=== PATIENT | female | born 1980 | race Caucasian/White ===

== ENCOUNTER 2019-04-16 07:13 | Outpatient (CLI) | payer OTHER, SELFPAY ==
--- NOTE | 2019-04-16 09:42 | DI.RAD_ITS ---
EXAM: XR SACRUM COCCYX INDICATION: COCCYDYNIA, M53.3. COMPARISON: No exams were available for comparison TECHNIQUE: 2D digital imaging was performed. FINDINGS: There is no evidence of fracture. The SI joints and pubic symphysis are unremarkable. IMPRESSION: Negative sacrum and coccyx.
== END 2019-04-16 07:33 ==
PROVIDERS: PCP Nurse Practitioner Family; Visit Provider Nurse Practitioner Family
DX: M53.3 Sacrococcygeal disorders, not elsewhere classified (principal)
CPT/HCPCS: 72220

== ENCOUNTER 2021-09-14 11:36 | Outpatient (REF) | payer OTHER, SELFPAY ==
--- NOTE | 2021-09-14 10:15 | PAPFT_PTH ---
PATIENT: Natalie Villarreal LOC: [facility] U#:[id number] AGE/SX: 41/F ROOM: RE09/14/[address]: Mackenzie Flower : 1980 BED: DIS: 09/14/2021 SPEC #: [id number] RECD: 09/14/21 17:52 STATUS: ELISABETH REQ #: [id number] KOBY: 09/14/21 10:[address]: Mackenzie Flower DEPT: [facility] Cytology RECD BY: Kristan Sandoval ENTERED: 09/14/21 17:52 SP TYPE: PAPFT OTHR DR: Dejah De Leon Tissues: 1 - CX/ENDOCX FOR PAP SMEARS Procedures: PAP THIN PREP/UVM Screening HPV DNA PROBE Comments: [id number] (HPV 16 & 18/45)
--- OUTSIDE RECORDS SUMMARY | 2021-09-14 11:41 | XMS_ITS | Clinical Summary ---
:1980 Author Organization [place] [address] Care Team Providers Name Role Phone Mackenzie Flower APRN Primary Care Provider [phone] Allergies Active Allergy Reactions Severity Noted Date Comments Ampicillin Hives 08/08/2016 Medications Medication Sig Dispensed Refills Start Date End Date Status vitamin with Take by mouth. 0 Active yvgjtmgw-[id number]-FA Tablet triamcinolone (KENALOG) Apply to areas 80 g 1 08/10/2019 Active 0.1 % Ointment of rash twice daily for 14 days, then take one week off and repeat. Don't apply to groin or face Active Problems No known active problems Social History Tobacco Use Types Packs/Day Years Used Date Former Smoker Smokeless Tobacco: Never Used Alcohol Use Standard Drinks/Week Comments No 0 (1 standard drink = 0.6 oz pure alcoho l) Sex Assigned at Date Recorded Not on file Last Filed Vital Signs Vital Sign Reading Time Taken Comments Blood Pressure 102/66 08/08/2016 9:08 AM EDT Pulse - - Temperature - - Respiratory Rate - - Oxygen Saturation - - Inhaled Oxygen Concentration - - Weight 53.7 kg (118 lb 6.4 oz) 08/08/2016 9:08 AM EDT Height - - Body Mass Index - - Plan of Treatment Health Maintenance Due Date Last Done Comments Covid-19 Vaccine (#1) 1986 HIV screen 08/28/1999 Hepatitis C Screening 08/28/1999 Tdap adult 2000 Tetanus vaccine 2000 HPV test 08/28/2011 PAP Smear 08/28/2011 Breast Cancer Share Decision Needed 2021 Influenza (Flu) vaccine (1 of 1 - Influenza standard 11/04/2021 series) Insurance Payer Benefit Plan / Subscriber ID Effective Dates Phone Addre ss Type Group HEALTH PLANS HEALTH PLANS [id number] 2019-[place] [phone] [address] [email or web address] [address] [place] [address] Care Teams Worm Raiser Relationship Specialty Start Date End Date Mackenzie Flower APRN PCP - General Family Medicine 08/06/19 [address] [place], [place] [id number]
--- OUTSIDE RECORDS SUMMARY | 2021-09-14 11:41 | XMS_ITS | Encounter Summary ---
:1980 Author Organization [facility] Address [place] [id number] Care Team Providers Name Role Phone Betsy Stiles MD Primary Care Provider Reason for Visit Reason Comments Ultrasound Consultation (Routine) - Closed Specialty Diagnoses / Procedures Referred By Contact Refer red To Contact Obstetrics and Diagnoses MATERNAL AGE Misti Mahajan G, CNM [facility] Study Abroad Coordinator 5l Gynecology Procedures [facility] [address] [address] Phone: Fax: Referral ID Status Reason Start Date Expiration Date Visits Requ ested Visits Authorized [id number] Closed 07/22/2016 07/22/2017 2 2 Encounter Details Date Type Department Care Team Description 08/08/2016 Procedure visit Obstetrics and Gertrudis Leyva, Materna l age 36+, Gynecology at [facility] MD hortagraviwilman, [facility] ADRIEL Small OBSTETRICS & [id number] GYNECOLOGY [phone] [place], [place] [address] Social History Tobacco Use Types Packs/Day Years Used Date Former Smoker Smokeless Tobacco: Never Used Alcohol Use Standard Drinks/Week Comments No 0 (1 standard drink = 0.6 oz pure alcoho l) Sex Assigned at Date Recorded Not on file documented as of this encounter Last Filed Vital Signs Vital Sign Reading Time Taken Comments Blood Pressure 102/66 08/08/2016 9:08 AM EDT Pulse - - Temperature - - Respiratory Rate - - Oxygen Saturation - - Inhaled Oxygen Concentration - - Weight 53.7 kg (118 lb 6.4 oz) 08/08/2016 9:08 AM EDT Height - - Body Mass Index - - documented in this encounter Progress Notes Gertrudis Leyva MD - 08/08/2016 10:45 AM EDT Maternal Medicine Consult Note Natalie Villarreal is a 35 y.o. with an ALLI of 01/06/17 who is at 18w3d gestation. She is seenin consultation at the request of Misti Mahajan CNM for evaluation of advanced maternal age. She was seen today for maternal- medicine consultation, ultrasound evaluation and genetic counseling withKarely Walter MS. Her Past Medical and Surgical history is remarkable for: 2 term vaginal births A family history was obtained. There is no history of structural abnormalities, inheritable disease, learning disability, intellectual disability, epilepsy, or repetitive loss. The ethnic backgrounds do not suggest a significantly increased genetic risk. Current Outpatient Prescriptions Medication Sig Dispense Refill ??? vitamin with pdppaqjo-Pj-Krja-FA Tablet Take by mouth. No current facility-administered medications for this visit. Allergies Allergen Reactions ??? Ampicillin Hives Record Review No additional issues Review of Systems Constitutional: fatigued but generally well Contractions: none Leaking: none Bleeding: none Musculoskeletal sciatica Physical Exam Last Set of Vitals: BP 102/66 (BP Location (NBP): Right arm, Patient Position: Sitting, BP Cuff Sizes: Adult (25-34 cm)) Wt 53.7 kg (118 lb 6.4 oz) LMP 04/01/2016 Weight - Scale: 53.7 kg (118 lb 6.4 oz) General: alert, well appearing, in no apparent distress Abdomen: abdomen is soft without significant tenderness Psychiatric: Affect is appropriate. Uterine Size: consistent with dates Ultrasound Growth appropriate for gestational age EGA 19 2/7 weeks Amniotic fluid volume normal Placenta posterior Presentation breech Morphology No structural abnormality or marker for aneuploidy. Assessment and Recommendations: 35 y.o. at 18w3d weeks' gestation. Advanced maternal age. Today's study demonstrates no finding that would increase suspicion for aneuploidy. I explained that ultrasound is not a very robust screen for Down syndrome. I explained that ultrasound has limitations and cannot detect all structural abnormalities or syndromes. I reviewed with her the option of amniocentesis, the limitations of information provided, delay to diagnosis and risk of miscarriage. She declined amniocentesis citing risk of miscarriage. She declined cell free DNA analysis. I appreciate the opportunity to be involved in this patient's care and am available if further questions should arise. No other visits are indicated at this time. Gertrudis Leyva MD 08/08/2016 Cc: Misti Mahajan CNM documented in this encounter Plan of Treatment Not on filedocumented as of this encounter Visit Diagnoses Diagnosis Maternal age 35+, multigravida, second t rimester documented in this encounter Care Teams Executive Asst Relationship Specialty Start Date End Date Moises-Betsy Hummel MD PCP - General 01/26/10 08/05/[address] [address] documented as of this encounter
--- OUTSIDE RECORDS SUMMARY | 2021-09-14 11:41 | XMS_ITS | Encounter Summary ---
:1980 Author Organization [facility] [place] [address] Care Team Providers Name Role Phone Mackenzie Flower APRN Primary Care Provider [phone] Reason for Visit Reason Comments Rash Consultation (Routine) - Specialty Diagnoses / Procedures Referred By Contact Refer red To Contact Dermatology Diagnoses Disorder of pigmentation, unspecified Mackenzie Flower, [facility] PROFESSOR OF COUNSELING [address] [facility] [address] [place] [address] [place] [address] Referral ID Status Reason Start Date Expiration Date Visits V isits Requested Authorized [id number] Consult, Test 08/06/2019 08/05/2020 [facility] PCP Updated and/or Approved Encounter Details Date Type Department Care Team Description 08/10/2019 Office Visit Dermatology at [facility] Rayray Aragon MD Polymorphous [address] [facility] [address] [place] [address] [facility] [phone] RD-DERMATOLOGY [place], [place] [address] Social History Tobacco Use Types Packs/Day Years Used Date Former Smoker Smokeless Tobacco: Never Used Alcohol Use Standard Drinks/Week Comments No 0 (1 standard drink = 0.6 oz pure alcoho l) Sex Assigned at Date Recorded Not on file documented as of this encounter Patient Instructions Patient InstructionsYanely Hernandez CCMA - 08/10/2019 11:40 AM EDT Sensitive Skin Care For Your Hands - Please place thin layer of Rx: Triamcinolone ointment to the hands twice daily for 14 days then take one week off and continue with 14 more days followed by another week off. We do not want you usingthe steroid terminal make up operator as prolonged topical corticosteroid can cause including weakening and thinningof the skin resulting in discoloration and stretch chavez. Please avoid face, groin , or other thin-skinned highly penetrable areas (eg, the underarms) - Please place cotton gloves on over a thin layer of the steroid ointment as described above 2-3 times a week at night, retire to bed with the gloves in place and in the morning, remove gloves and rinse off hands. Cotton gloves are very helpful for keeping medicated ointment on hands during the night and also increase the penetration and effectiveness of the steroid. Below is a link to [employer] to buy a pair, although any pharmacy should carry some - Please know that constant hand washing with a harsh soap will worsen the disease and leave hands dry, cracked and peeling. Ways to minimize this is either by wearing waterproof gloves are use alcoholbased hand cloth hand such as Purell. If you do wash your hands, please pat dry and immediately applyan moisturizer, Vaseline is preferable. - Please discontinue ALL current personal care products that are being applied to the hands apart from either Vaseline, CeraVe cream, CeraVe lotion, CeraVe lite lotion, Vanicream cream. [email or web address]-Hkpnad-Xufjuo-Gloves-Medium/[email or web address] =1 documented in this encounter Progress Notes Rayray Aragon - 08/10/2019 11:40 AM EDT Images from the original note were not included. DERMATOLOGY - NEW PATIENT NOTE Date of service: 08/10/2019 Natalievalery Villarreal : 1980, 38 y.o. Chief Complaint: Chief Complaint Patient presents with ??? Rash HPI: Natalie Villarreal is a 38 y.o. female referred by Mackenzie Flower with the following concerns: patient has a history of a rash that started during her most recent in 2017. She states it started on her hands and it was very itchy. Sun appears to be directly inciting, starts in the spring and lasts throughout the summer, better in the winter. She has tried Hydrocortisone and other OTC products. She is 7-8 out of 10 itchy when she is in the sun. She applies Neutorgena 70spf sunscreen daily. No other rash on the face or legs, feet. No lesions in the mouth or genitals. Relevant Skin History: - Okay to leave detailed message with results? yes - Skin cancer (including type): no Family History: Melanoma: n/a Relevant Social History: - n/a Meds: Current Outpatient Medications Medication Sig Dispense Refill ??? vitamin with uzoezqve-Jf-Mhyk-FA Tablet Take by mouth. No current facility-administered medications for this visit. Allergies: Allergies Allergen Reactions ??? Ampicillin Hives Review of Systems: - General: Feels well, denies any recent illnesses, fevers, changes in weight, chills, or night sweats - Skin: No other skin concerns. Examination: - Constitutional: Patient was alert, well-appearing and in no noticeable distress. - Focused Exam: Skin examination of the face, hands, left and right upper extremities was normal with the exception of the findings listed below - A nurse/MA was present and on standby during my examination. 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 pink flat topped papules on the bilateral dorsal hands. - Start Rx: Triamcinolone ointment apply topically BID to the areas of rash x 14 days, take one weekoff and repeat. Can apply under cotton gloves at night - strict sun protection, physical ralf suncreens - discussed biopsy, although today is good day, minimal inflammation and unclear if it would exchange engineer. Instructed her that if rash worsens despite above measures can return for follow soon than scheduled. RTC: 3 months The following photos were obtained with patient consent: Note initiated by VIDYA Wilkes. I, VIDYA Wilkes, have performed the documentation for this encounter in the presence of andacting as a scribe for Rayray Aragon MD. I performed the services which were documented by the scribe, and I agree with the accuracy of the documentation in this encounter. Rayray Aragon MD Reviewed and signed by Rayray Aragon MD Resident in Dermatology [facility] staff knurling machine tender: Gertrudis Vazquez MD Section of Dermatology [facility] Gertrudis Vazquez MD - 08/10/2019 11:40 AM EDT I was the supervising physician working with dermatology resident Dr. Aragon in the dermatology clinicduring this patient visit. The level of Resident supervision for this patient visit was indirect supervision with direct supervision immediately available. (definition: [facility] Policy Statement on Graduate Medical Education, Supervision of Graduate Medical Trainees) I was immediately available to for questions and discussion regarding this visit. I have reviewed his encounter note details and level of service. 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
--- OUTSIDE RECORDS SUMMARY | 2021-09-14 11:41 | XMS_ITS | Encounter Summary ---
:1980 Author Organization [place] [address] Care Team Providers Name Role Phone Betsy Stiles MD Primary Care Provider Encounter Details Date Type Department Care Team Description 08/03/2016 Orders Only Obstetrics and Gertrudis Leyva MD Maternal age > 35, Gynecology at [facility] multigravida, [facility] DR unspecified trimester [address] [place] & [place] [address] GYNECOLOGY [phone] [place] [id number] Social History Tobacco Use Types Packs/Day Years Used Date Never Assessed Sex Assigned at Date Recorded Not on file documented as of this encounter Plan of Treatment Not on filedocumented as of this encounter Results US OB Detailed Morphology (08/08/2016 10:59 AM EDT) Anatomical Region Laterality Modality Pelvis, Abdomen Ultrasound Specimen (Source) Anatomical Collection Method Collection Time Re ceived Time Location / / Volume Laterality 08/08/2016 9:19 AM EDT Impressions 08/08/2016 11:39 AM EDT 2nd Trimester - Detailed Morphology - S ummary Single intrauterine with a ge stational age of 18w 3d based on LMP ??(04/01/16) Composite age based on the current ultr asound alone is 19w 2d. Current growth parameters are consisten t with prior dating indicating normal growth. Amniotic fluid volume is Appropriate fo r gestational age. Detailed anatomic evaluation was performed and no structural abnormalities are noted. ??I ??viewed the images and agree with the above interpretation. ? Gertrudis flynn MD Electronically Signed Corrected Final Re port ??08/08/2016 06:33 pm Narrative 08/08/2016 11:39 AM EDT OBSTETRICS REPORT ? (Corrected Final 08/08/2016 06:33 ?pm) PATIENT INFO: ID #: ? [id number] ?: ??[birth year] (35 yrs) Name: ? NATALIE VILLARREAL ?Visit Date: 08/08/2016 09:19 am PERFORMED BY: Performed By: ? Noman RDMS, ??Estela barksdale Attending: ?Autumn FAN, Gertrudis Galloway Resident: ? Nicolasa FAN, Oliverio Garcias Referred By: ?JOSE DHILLON CNM Location: ? [place] SERVICE(S) PROVIDED: ??[facility] - Detailed Morphology - [id number] ? [id number] INDICATIONS: ??18 weeks gestation of ?Z3A.18 ??maternal age OB HISTORY: Blood ?Height: ?Weight (lb): 118 ? BMI: Type: EVALUATION: Num Of Fetuses: ? 1 Heart ? 157 Rate(bpm): Cardiac Activity: ?? Observed, normal r hythm Presentation: ? Breech Placenta: ? Anterior P. Cord Insertion: ??Within Normal Limi ts Amniotic Fluid GEORGINA FV: ?Appropriate for gestati onal age --------- BIOMETRY: --------- BPD: ?44.8 ??mm ? G.Age: ?? 19w 4d OFD: ?57.3 ??mm HC: ?167.3 ??mm ? G.Age: ?? 19w 3d AC: ?136.4 ??mm ? G.Age: ?? 19w 0d FL: ? 29.1 ??mm ? G.Age: ?? 19w 0d HUM: ?27.8 ??mm ? G.Age: ?? 18w 6d CER: ?19.9 ??mm ? G.Age: ?? 19w 0d NFT: ? 2.3 ??mm NB: ? 4.91 ??mm LV: ?6.4 ??mm CM: ?5.9 ??mm CI: ?78.2 ??% ? 70 - 86 FL/HC: ? 17.4 ??% ? 15.8 - 18 HC/AC: ? 1.23 ?1.07 - 1.29 FL/BPD: ?65.0 ??% FL/AC: ? 21.3 ??% ? 20 - 24 Est. FW: ? 273 ?? gm ?? 0 lb 10 oz GESTATIONAL AGE: LMP: ? 18w 3d ?Date : ??04/01/16 ? ALLI: ?? 01/06/17 U/S Today: ? 19w 2d ?ALLI: ?? 12/31/16 Best: ?18w 3d ?? Det. By: ??LMP ??(04/01/16) ?ALLI: ?? 01/06/17 TARGETED ANATOMY: Central Nervous System Calvarium/Cranial V.: ??Within Normal L imits Intracranial Lisa: ? Within Normal Limits Cavum: ? Within N ormal Limits Parenchyma: ?Within Nor mal Limits Lateral Ventricles: ?Within Normal Limits Choroid Plexus: ?Within Richelle l Limits Cereb./Vermis: ? Within Richelle l Limits Cisterna Magna: ?Within Richelle l Limits Corpus Callosum: ? Within Normal Limits Midline Falx: ?Within Norm al Limits Spine Cervical: ?Visualize d Thoracic: ?Visualize d Lumbar: ?Visualiz ed Sacral: ?Visualiz ed Shape/Curvature: ? Visualized Head/Neck Face: ?Within Normal Limits Lips: ?Within Normal Limits Ear Position/Size: ? Visualized Neck: ?Within Normal Limits Nuchal Fold: ? Within Norm al Limits Nasal Bone: ?Present Profile: ? Visualize d Orbits/Eyes: ? Visualized Mandible: ?Visualize d Maxilla: ? Visualize d Thorax Thoracic Contour: ?Within Normal Limits Lungs: ? Visualiz ed 4 Chamber View: ?Within Richelle l Limits Cardiac Motion: ?Normal Rhyth m Rt Outflow Tract: ?Visualized Lt Outflow Tract: ?Visualized Aortic Arch: ? Visualized Ductal Arch: ? Visualized SVC: ? Visuali zed Cardiac [place]: ?Visualized Diaphragm: ? Visualized 3 Vessel View: ? Visualized IVC: ? Visuali zed Abdomen Ventral Wall: ?Visualized Cord Insertion: ?Visualized Situs: ? Normal Stomach: ? Visualize d Liver: ? Visualiz ed Lt Kidney: ? Visualized Rt Kidney: ? Visualized Bladder: ? Visualize d Bowel: ? Visualiz ed Extremities Lt Humerus: ?Within Nom al Limits Rt Humerus: ?Within Nor mal Limits Lt Forearm: ?Within Nor mal Limits Rt Forearm: ?Within Nor mal Limits Lt Hand: ? Within No rmal Limits Rt Hand: ? Within No rmal Limits Lt Femur: ?Within No rmal Limits Rt Femur: ?Within No rmal Limits Lt Lower Leg: ?Within Norm al Limits Rt Lower Leg: ?Within Norm al Limits Lt Foot: ? Visualize d Rt Foot: ? Visualize d Other Umbilical Cord: ?3 vessel cor d CERVIX UTERUS ADNEXA: Left Ovary Size(cm) ? 2.31 ?? x ?? 1.84 ?? x ? ?1.75 ?Vol(ml): 3.9 Visualized Right Ovary Size(cm) ? 1.9 ??x ?? 1.75 ?? x ??0.78 ?Vol(ml): 1.4 Visualized Procedure Note Gertrudis Leyva MD - 08/08/2016Formattin g of this note might be different from the original. OBSTETRICS REPORT (Corrected Final 07/2016 06:33 pm) PATIENT INFO: ID #: [id number] : [birth year] (35 y rs) Name: NATALIE VILLARREAL Visit Date: 07/2016 09:19 am PERFORMED BY: Performed By: Vira Tineo RDMS Attending: Gertrudis Leyva MD Resident: Cristy Baldwin MD Referred By: JOSE DHILLON [facility] Location: [place] SERVICE(S) PROVIDED: [facility] - Detailed Morphology - [id number] INDICATIONS: 18 weeks gestation of Z3A.18 maternal age OB HISTORY: Blood Height: Weight (lb): 118 BMI: Type: EVALUATION: Num Of Fetuses: 1 Heart 157 Rate(bpm): Cardiac Activity: Observed, normal rhyt hm Presentation: Breech Placenta: Anterior P. Cord Insertion: Within Normal Limits Amniotic Fluid GEORGINA FV: Appropriate for gestational age --------- BIOMETRY: --------- BPD: 44.8 mm G.Age: 19w 4d OFD: 57.3 mm HC: 167.3 mm G.Age: 19w 3d AC: 136.4 mm G.Age: 19w 0d FL: 29.1 mm G.Age: 19w 0d HUM: 27.8 mm G.Age: 18w 6d CER: 19.9 mm G.Age: 19w 0d NFT: 2.3 mm NB: 4.91 mm LV: 6.4 mm CM: 5.9 mm CI: 78.2 % 70 - 86 FL/HC: 17.4 % 15.8 - 18 HC/AC: 1.23 1.07 - 1.29 FL/BPD: 65.0 % FL/AC: 21.3 % 20 - 24 Est. FW: 273 gm 0 lb 10 oz GESTATIONAL AGE: LMP: 18w 3d Date: 04/01/16 ALLI: 7 U/S Today: 19w 2d ALLI: 12/31/16 Best: 18w 3d Det. By: LMP (04/01/16) ED TARGETED ANATOMY: Central Nervous System Calvarium/Cranial V.: Within Normal [place] its Intracranial Lisa: Within Normal Limits Cavum: Within Normal Limits Parenchyma: Within Normal Limits Lateral Ventricles: Within Normal Limit s Choroid Plexus: Within Normal Limits Cereb./Vermis: Within Normal Limits Cisterna Magna: Within Normal Limits Corpus Callosum: Within Normal Limits Midline Falx: Within Normal Limits Spine Cervical: Visualized Thoracic: Visualized Lumbar: Visualized Sacral: Visualized Shape/Curvature: Visualized Head/Neck Face: Within Normal Limits Lips: Within Normal Limits Ear Position/Size: Visualized Neck: Within Normal Limits Nuchal Fold: Within Normal Limits Nasal Bone: Present Profile: Visualized Orbits/Eyes: Visualized Mandible: Visualized Maxilla: Visualized Thorax Thoracic Contour: Within Normal Limits Lungs: Visualized 4 Chamber View: Within Normal Limits Cardiac Motion: Normal Rhythm Rt Outflow Tract: Visualized Lt Outflow Tract: Visualized Aortic Arch: Visualized Ductal Arch: Visualized SVC: Visualized Cardiac [place]: Visualized Diaphragm: Visualized 3 Vessel View: Visualized IVC: Visualized Abdomen Ventral Wall: Visualized Cord Insertion: Visualized Situs: Normal Stomach: Visualized Liver: Visualized Lt Kidney: Visualized Rt Kidney: Visualized Bladder: Visualized Bowel: Visualized Extremities Lt Humerus: Within Nomal Limits Rt Humerus: Within Normal Limits Lt Forearm: Within Normal Limits Rt Forearm: Within Normal Limits Lt Hand: Within Normal Limits Rt Hand: Within Normal Limits Lt Femur: Within Normal Limits Rt Femur: Within Normal Limits Lt Lower Leg: Within Normal Limits Rt Lower Leg: Within Normal Limits Lt Foot: Visualized Rt Foot: Visualized Other Umbilical Cord: 3 vessel cord CERVIX UTERUS ADNEXA: Left Ovary Size(cm) 2.31 x 1.84 x 1.75 Vol(ml): 3. 9 Visualized Right Ovary Size(cm) 1.9 x 1.75 x 0.78 Vol(ml): 1.4 Visualized IMPRESSION 2nd Trimester - Detailed Morphology - S ummary Single intrauterine with a ge stational age of 18w 3d based on LMP (04/01/16) Composite age based on the current ultr asound alone is 19w 2d. Current growth parameters are consisten t with prior dating indicating normal growth. Amniotic fluid volume is Appropriate fo r gestational age. Detailed anatomic evaluation was performed and no structural abnormalities are noted. I viewed the images and agree with the above interpretation. Gertrudis Leyva MD Electronically Signed Corrected Final Re port 08/08/2016 06:33 pm Gertrudis Leyva MD IMG US OB ORDERABLES documented in this encounter Visit Diagnoses Diagnosis Maternal age > 35, multigravida, unspeci fied trimester Maternal age > 35, multigravida, unspeci fied trimester documented in this encounter Care Teams Aws Solution Architect Relationship Specialty Start Date End Date Moises-Betsy Hummel MD PCP - General 01/26/10 08/05/[address] [address] documented as of this encounter
--- OUTSIDE RECORDS SUMMARY | 2021-09-14 11:41 | XMS_ITS | Encounter Summary ---
:1980 Author Organization [facility] Address [place] [id number] Care Team Providers Name Role Phone Betsy Stiles MD Primary Care Provider Reason for Visit Reason Comments Advanced Maternal Age Consultation (Routine) - Closed Specialty Diagnoses / Procedures Referred By Contact Refer red To Contact Obstetrics and Diagnoses MATERNAL AGE Misti Mahajan, CNM [facility] Airplane Rigger 5l Gynecology Procedures [facility] [address] [place], [place] [address] [place] [phone] Phone: Fax: Referral ID Status Reason Start Date Expiration Date Visits Requ ested Visits Authorized [id number] Closed 07/22/2016 07/22/2017 2 2 Encounter Details Date Type Department Care Team Description 08/08/2016 Office Visit Obstetrics and Karely Jackson Maternal age 36+, Gynecology at [facility] multigravida, second [facility] DR Forbes MA OBSTETRICS & [address] GYNECOLOGY [phone] [place], [place] [address] Social History Tobacco Use Types Packs/Day Years Used Date Former Smoker Smokeless Tobacco: Never Used Alcohol Use Standard Drinks/Week Comments No 0 (1 standard drink = 0.6 oz pure alcoho l) Sex Assigned at Date Recorded Not on file documented as of this encounter Progress Notes Karely Jackson LGC - 08/08/2016 9:30 AM EDT Genetic Counseling Note Natalie Villarreal is a 35 y.o. female currently at 18w3d gestation. She was referred to the Diagnosis Program by Misti Mahajan CNM. I met with Natalie for a 20 minute genetic counseling visit. She was accompanied to the visit by her family. Dr. Cristy Baldwin observed. Chief Complaint Patient presents with ??? Advanced Maternal Age, 36 at ALLI A three generation pedigree was obtained and will be scanned into Natalie's electronic medical record. The reported family history was otherwise unremarkable for intellectual disability, congenital anomalies, recurrent loss, or known genetic conditions that could have implications for this . Natalie and her , Ander Villarreal, are , not specified. Consanguinity was denied. Obstetric History T2 L2 SAB0 TAB0 Ectopic0 Multiple0 Live Births2 # Outcome Date GA Lbr Ki/2nd Weight Sex Delivery Anes PTL Lv 3 Current 2 Term 01/23/08 39w0d 3.204 kg (7 lb 1 oz) F Vag-Spont [place] 1 Term 05/14/03 41w0d 2.977 kg (6 lb 9 oz) F Vag-Spont BARRERA Patient's last menstrual period was 04/01/2016. Estimated Date of Delivery: 01/06/17 based on LMP and confirmed by ultrasound (06/10/16 = 10.4 weeks) Screening Results Test Result ??? Aneuploidy screen Declined per record ??? Cystic fibrosis carrier screen Declined per record ??? Thalassemia screen MCV within normal limits (82.6 fL) Assessment Maternal age, 36 at ALLI: We reviewed the association of maternal age with chromosome aneuploidy. We discussed the benefits, limitations, and risks of diagnostic testing for aneuploidies with amniocentesis, as well as screening with ultrasound and cell-free DNA screening ([place]). Plan: Natalie declined the [place] test and amniocentesis. Following our visit, Natalie had a morphology ultrasound and maternal- medicine consultation with Dr. Gertrudis Leyva. Please refer to her note for further details and recommendations. 20 minutes of this encounter were spent in ugur-sm-zgvy discussion of testing options and reviewing the family history. documented in this encounter Plan of Treatment Not on filedocumented as of this encounter Visit Diagnoses Diagnosis Maternal age 35+, multigravida, second t rimester documented in this encounter Care Teams Compressor Station Engineer Relationship Specialty Start Date End Date Moises-Betsy Hummel MD PCP - General 01/26/10 08/05/19 [address] [place] [address] documented as of this encounter
--- OUTSIDE RECORDS SUMMARY | 2021-09-14 11:41 | XMS_ITS | Encounter Summary ---
:1980 Author Organization [facility] Address [address] [facility] [place] [address] Care Team Providers Name Role Phone Betsy Stiles MD Primary Care Provider Encounter Details Date Type Department Care Team Description 08/08/2016 Hospital Encounter Radiology at [facility] Gertrudis Leyva, Maternal age > 35, One [facility] MD child, Drive [facility] unspecified [place], [place] [address] [place] [address] OBSTETRICS & [phone] [place] [address] Social History Tobacco Use Types Packs/Day Years Used Date Former Smoker Smokeless Tobacco: Never Used Alcohol Use Standard Drinks/Week Comments No 0 (1 standard drink = 0.6 oz pure alcoho l) Sex Assigned at Date Recorded Not on file documented as of this encounter Medications at Time of Discharge Medication Sig Dispensed Refills Start Date End Date vitamin with Take by mouth. 0 finsmvok-Sf-Zcdm-FA Tablet documented as of this encounter Plan of Treatment Not on filedocumented as of this encounter Procedures Procedure Name Priority Date/Time Associated Diagnosis Comme nts US OB DETAILED Routine 08/08/2016 10:59 Maternal age > 35, Res ults for this MORPHOLOGY AM EDT multigravida, procedure are in unspecified the results trimester section. documented in this encounter Results US OB Detailed Morphology [...] 06:33 ?pm) PATIENT INFO: ID #: ? [id number] ?: ??[birth year] (35 yrs) Name: ? NATALIE VILLARREAL ?Visit Date: 08/08/2016 09:19 am PERFORMED BY: Performed By: ? Noman CONTRERAS, ??Estela barksdale Attending: ?Autumn FAN, Gertrudis Galloway Resident: ? Nicolasa FAN, Oliverio Garcias Referred By: ?JOSE DHILLON CNM Location: ? [place] SERVICE(S) PROVIDED: ??[facility] - Detailed Morphology - [id number] ? [id number] INDICATIONS: ??18 weeks gestation of ?Z3A.18 ??maternal [...] ? Visualized SVC: ? Visuali zed Cardiac [place]: ?Visualized Diaphragm: ? Visualized 3 Vessel View: [...] 07/2016 06:33 pm) PATIENT INFO: ID #: [id number] : [birth year] (35 y rs) Name: NATALIE VILLARREAL Visit Date: 07/2016 09:19 am PERFORMED BY: Performed By: Vira Tineo RDMS Attending: Gertrudis Leyva MD Resident: Cristy Baldwin MD Referred By: JOSE DHILLON [facility] Location: [place] SERVICE(S) PROVIDED: [facility] - Detailed Morphology - [id number] INDICATIONS: 18 weeks gestation of [...] Visualized Ductal Arch: Visualized SVC: Visualized Cardiac [place]: Visualized Diaphragm: Visualized 3 Vessel View: Visualized [...] trimester documented in this encounter Care Teams Nick Setter Relationship Specialty Start Date End Date Moises-Betsy Hummel MD PCP - General 01/26/10 08/05/[address] [address] documented as of this encounter
--- OUTSIDE RECORDS SUMMARY | 2021-09-14 11:42 | XMS_ITS | Encounter Summary ---
:[address] [facility] Address [address] [place] [address] Care Team Providers Name Role Phone Unavailable Primary Care Provider Unavailable Encounter Details Date Type Department Care Team Description 07/01/2005 Results Only [facility] - Solange Stiles MD Maple conversion 79 [facility],[place] [address] [id number] [phone] Social History Tobacco Use Types Packs/Day Years Used Date Never Assessed Sex Assigned at Date Recorded Not on file documented as of this encounter Plan of Treatment Not on filedocumented as of this encounter Procedures Procedure Name Priority Date/Time Associated Diagnosis Comme nts CYTOPATHOLOGY Routine 07/01/2005 0:00 EDT Result s for this procedure are i n the results section . documented in this encounter Results CYTOPATHOLOGY (07/01/2005 0:00 EDT) Pathology Report: CYTOPATHOLOGY REPORT [facility] Reports generated via electronic interface contain kitty ginal data; however they are lacking the format of the original re port. Caution should be taken when reading/interpreting unfo rmatted reports. Name: ? NATALIE VILLARREAL ? Accession #: ? [id number] : ? 1980 (Age: 24) ??F ?Collect Date: ? 06/05 Location: ? [facility] ? Receive Date : ? 07/05/2005 Provider: ?KRISTINA STILES MD Copy to: ? Specimen/Source: ? ThinPrep Pap Test, Cervix/Endocervix, processed on [employer] ThinPrep Imaging System, with manual evaluation Last Menstrual Period: ? 07/08 Menstrual/ Status: ? Post Other: ? HPVA - HPV testing requested if ASC-US on the current ThinPrep Pap test. ? SPECIMEN ADEQUACY ? Satisfactory for Evaluation - transformation zone component present GENERAL CATEGORIZATION ? Negative for Intraepithelial Lesion or Malignan cy ? Document reviewed and electronically signed by: ? FIORDALIZA Latif(ASCP)(IAC) ? Report Date: ??07/06/2005 17:35 End of Report Specimen Performing Organization Address City/State/ZIP Code Phon e Number [facility] [address] [place] [address] SERVICES [facility] [address] [place] [address] documented in this encounter Visit Diagnoses Not on filedocumented in this encounter
--- OUTSIDE RECORDS SUMMARY | 2021-09-14 11:42 | XMS_ITS | Encounter Summary ---
:1980 Author Organization [facility] Address [address] [place] [address] Care Team Providers Name Role Phone Unavailable Primary Care Provider Unavailable Encounter Details Date Type Department Care Team Description 05/11/2007 Hospital Encounter [facility] - Betsy Stiles MD Other 79 [facility] [id number] [place] [address] (Wo rk) Social History Tobacco Use Types Packs/Day Years Used Date Never Assessed Sex Assigned at Date Recorded Not on file documented as of this encounter Discharge Disposition Disposition Code Departure Means Destination Home or Self Care documented in this encounter Plan of Treatment Not on filedocumented as of this encounter Visit Diagnoses Not on filedocumented in this encounter
--- OUTSIDE RECORDS SUMMARY | 2021-09-14 11:42 | XMS_ITS | Clinical Summary ---
:1980 Author Organization [facility] Address [address] [place] [address] Care Team Providers Name Role Phone Betsy Stiles MD Primary Care Provider Social History Tobacco Use Types Packs/Day Years Used Date Never Assessed Sex Assigned at Date Recorded Not on file Plan of Treatment Not on file Care Teams Sizer Machine Relationship Specialty Start Date End Date Betsy Stiles MD PCP - General 10/24/14 [address] [place] [address]
--- OUTSIDE RECORDS SUMMARY | 2021-09-14 11:42 | XMS_ITS | Encounter Summary ---
:1980 Author Organization [facility] Address [address] [place] [address] Care Team Providers Name Role Phone Betsy Stiles MD Primary Care Provider Encounter Details Date Type Department Care Team Description 02/05/2021 Lab Requisition [facility] Outr Resulting Lab, Pathology & Laboratory Provider [facility] [address] [place] [address] Social History Tobacco Use Types Packs/Day Years Used Date Never Assessed Sex Assigned at Date Recorded Not on file documented as of this encounter Plan of Treatment Not on filedocumented as of this encounter Procedures Procedure Name Priority Date/Time Associated Diagnosis Comme nts COVID-19 TEST [facility] Today 02/05/2021 10:04 LAB PCR EST COVID-19 TESTING Routine 02/05/2021 10:04 Results for this EST procedure are i n the results section. documented in this encounter Results COVID-19 TEST [facility] PCR (02/05/2021 10:04 EST) Specimen Swab Performing Organization Address City/State/ZIP Code Phon e Number [facility] [address] [place] [address] SERVICES COVID-19 TESTING (02/05/2021 10:04 EST) COVID-19 rt-PCR Negative Negative [facility] Result Comment: [facility] This test has not been FDA c leared or approved. This test has been authorized by FDA under an EUA for use by authorized laboratories. This test has been authorized only for detection of nucleic acid fro SERVICES m 2019-nCoV, not for any oth er viruses or pathogens. This test is only authorized for the duration of the declaration that circumstances exist justifying the authorization of emergency use of in vitro d iagnostic tests for detectio n and/or diagnosis of 2019-nCoV under section 564(b)(1) of Act, 21 U.S.C ?? 360bbb-3(b) (1), unless the authorization is terminated or revoked sooner. Negative results do not prec lude 2019-nCoV infection and should not be used as the sole basis for treatment or other patient management decisions. Negative results must be combined with clinical observa tions, patient history, and epidemiological informatio n. Performed on the [employer] Fusion instrument Performing Lab [place] [facility] Lab [facility] SERVICES Specimen Swab Performing Organization Address City/State/ZIP Code Phon e Number [facility] [address] [place] [address] SERVICES documented in this encounter Visit Diagnoses Not on filedocumented in this encounter Care Teams [employer] Relationship Specialty Start Date End Date Moises-Betsy Hummel MD PCP - General 10/24/14 [address],[facility] 3 [place] [address] documented as of this encounter
--- OUTSIDE RECORDS SUMMARY | 2021-09-14 11:42 | XMS_ITS | Encounter Summary ---
:[address] [facility] Address [address] [place] [address] Care Team Providers Name Role Phone Betsy Stiles MD Primary Care Provider Encounter Details Date Type Department Care Team Description 05/27/2016 Results Only [facility]- Misti Cifuentes CNM [phone] [place] [address] (Wo rk) Social History Tobacco Use Types Packs/Day Years Used Date Never Assessed Sex Assigned at Date Recorded Not on file documented as of this encounter Plan of Treatment Not on filedocumented as of this encounter Procedures Procedure Name Priority Date/Time Associated Diagnosis Comme nts PAP TEST- RESULT Routine 05/27/2016 0:00 EDT Resu lts for this ONLY procedure are i n the results section. documented in this encounter Results PAP TEST- RESULT ONLY (05/27/2016 0:00 EDT) Pathology Report: CYTOPATHOLOGY REPORT [facility] Reports generated via electronic interface contain kitty ginal data; SERVICES however they are lacking the format of the original re port. Caution should be taken when reading/interpreting unfo rmatted reports. Name: ? NATALIE VILLARREAL ? Accession #: ? [id number] ? : ? 1980 (Age: 4 4) ??F ?Collect Date: ? 05/27/2016 ? Location: ? [facility] ? Receive Date: ? 05/31/19 17 ? Provider: MISTI ARENAS Copy to: BETSY STILES MD ? Final Report SPECIMEN ADEQUACY ? Satisfactory for Evaluation - transformation zone component present GENERAL CATEGORIZATION ? Negative for Intraepithelial Lesion or Malignan cy ?? Last Menstrual Period: 04/01/2016 Menstrual/ Status: ?? Specimen/Source: ??Pap Test, Cervix, ThinPrep Imaging System with manual evaluation Document reviewed and electronically signed by: ? Anderson Bañuelos, FIORDALIZA(ASCP) ? Report ??Date: 06/01/2016 14:25 HPV with Pap Test ? Date Ordered: ? 06/01/2016 ? Status: ?? Signed Out ?Date Complete: ? 06/02/2016 ? By: ??Sy stem Interface ? Date Reported: ? 06/02/2016 ? Interpretation RESULT: Negative for HPV. No E6 or E7 mRNA is detected from HPV types 16,18,31,3 3,35, 39,45,51,52,56,58,59,66, and 68 by it desktop support specialist media alondra amplification. Comments Document reviewed and electronically signed by: ? System Interface ? Report date: 06/02/2016 By the signature above, the attending physician certif ies that he/she has personally conducted a gross and/or microscopic examin ation of the described specimens and rendered or confirmed the above diagnosi s. End of Report Specimen Performing Organization Address City/State/ZIP Code Phon e Number [facility] [address] [place] [address] SERVICES documented in this encounter Visit Diagnoses Not on filedocumented in this encounter Care Teams Stereotyper Apprentice Relationship Specialty Start Date End Date Moises-Betsy Hummel MD PCP - General 10/24/14 [address] [place] [address] documented as of this encounter
--- OUTSIDE RECORDS SUMMARY | 2021-09-14 11:42 | XMS_ITS | Encounter Summary ---
:1980 Author Organization [facility] Address [address] [place] [address] Care Team Providers Name Role Phone Betsy Stiles MD Primary Care Provider Encounter Details Date Type Department Care Team Description 03/19/2021 Lab Requisition [facility] Outr Resulting Lab, Pathology & Laboratory Provider [facility] [address] [place] [address] Social History Tobacco Use Types Packs/Day Years Used Date Never Assessed Sex Assigned at Date Recorded Not on file documented as of this encounter Plan of Treatment Not on filedocumented as of this encounter Procedures Procedure Name Priority Date/Time Associated Diagnosis Comme nts COVID-19 TEST [facility] Today 03/19/2021 8:43 EST LAB PCR COVID-19 TESTING Routine 03/19/2021 8:43 EST Resu lts for this procedure are i n the results section. documented in this encounter Results COVID-19 TEST [facility] PCR (03/19/2021 8:43 EST) Specimen Swab Performing Organization Address City/State/ZIP Code Phon e Number [facility] [address] [place] [address] SERVICES COVID-19 TESTING (03/19/2021 8:43 EST) COVID-19 rt-PCR Negative Negative [facility] Result Comment: [facility] This test has not been FDA c leared or approved. This test has been authorized by FDA under an EUA for use by authorized laboratories. This test has been authorized only for detection of nucleic acid fro SERVICES m 2018-nCo, not for any oth er viruses or [...] and epidemiological informatio n. Performed on the [employer] Fusion instrument Performing Lab [place] [facility] Lab [facility] SERVICES Specimen Swab Performing Organization Address City/State/ZIP Code Phon e Number [facility] [address] [place] [address] SERVICES documented in this encounter Visit Diagnoses Not on filedocumented in this encounter Care Teams Internal Consultant Relationship Specialty Start Date End Date Moises-Betsy Hummel MD PCP - General 10/24/14 [address],[facility] 3 [place] [id number] documented as of this encounter
--- OUTSIDE RECORDS SUMMARY | 2021-09-14 11:42 | XMS_ITS | Encounter Summary ---
:1980 Author Organization [facility] Address [address] [place] [address] Care Team Providers Name Role Phone Unavailable Primary Care Provider Unavailable Encounter Details Date Type Department Care Team Description 05/02/2011 Results Only [facility] Bert Mcgarry, [facility] Laboratory Services - [address] [place], [place] [address] [facility] [address] [place] [address] [phone] Social History Tobacco Use Types Packs/Day Years Used Date Never Assessed Sex Assigned at Date Recorded Not on file documented as of this encounter Plan of Treatment Not on filedocumented as of this encounter Procedures Procedure Name Priority Date/Time Associated Diagnosis Comme nts PAP TEST- RESULT Routine 05/02/2011 0:00 EST Resu lts for this ONLY procedure are i n the results section. documented in this encounter Results PAP TEST- RESULT ONLY (05/02/2011 0:00 EST) Pathology Report: CYTOPATHOLOGY REPORT [facility] Reports generated via electronic interface contain kitty ginal data; however they are lacking the format of the original re port. Caution should be taken when reading/interpreting unfo rmatted reports. Name: ? NATALIE VILLARREAL ? Accession #: ? [id number] : ? 1980 (Age: 30) ??F ?Collect Date: ? 04/07 Location: ? [facility] ? Receive Date : ? 05/03/2011 Provider: ?FLORY MCGARRY PROJECT CONTROLS SCHEDULER Copy to: ? Specimen/Source: ? Pap Test, Cervix/Endocervix, ThinPrep Imaging System with manual evaluation Last Menstrual Period: ? 04/05/11 ? SPECIMEN ADEQUACY ? Satisfactory for Evaluation - transformation zone component present GENERAL CATEGORIZATION ? Negative for Intraepithelial Lesion or Malignan cy ? Document reviewed and electronically signed by: ? Anderson Bañuelos, FIORDALIZA(ASCP) ? Report Date: ??05/05/2011 10:17 End of Report Specimen Performing Organization Address City/State/ZIP Code Phon e Number [facility] [address] [place] [address] SERVICES [facility] [address] [place] [address] documented in this encounter Visit Diagnoses Not on filedocumented in this encounter
--- OUTSIDE RECORDS SUMMARY | 2021-09-14 11:42 | XMS_ITS | Encounter Summary ---
:1980 Author Organization [facility] Address [address] [place] [address] Care Team Providers Name Role Phone Betsy Stiles MD Primary Care Provider Encounter Details Date Type Department Care Team Description 03/30/2021 Lab Requisition [facility] Outr Resulting Lab, Pathology & Laboratory Provider [facility] [address] [place] [address] Social History Tobacco Use Types Packs/Day Years Used Date Never Assessed Sex Assigned at Date Recorded Not on file documented as of this encounter Plan of Treatment Not on filedocumented as of this encounter Procedures Procedure Name Priority Date/Time Associated Diagnosis Comme nts COVID-19 TEST [facility] Today 03/30/2021 9:02 EST LAB PCR COVID-19 TESTING Routine 03/30/2021 9:02 EST Resu lts for this procedure are i n the results section. documented in this encounter Results COVID-19 TEST [facility] PCR (03/30/2021 9:02 EST) Specimen Swab Performing Organization Address City/State/ZIP Code Phon e Number [facility] [address] [place] [address] SERVICES COVID-19 TESTING (03/30/2021 9:02 EST) COVID-19 rt-PCR Negative Negative [facility] Result Comment: [facility] This [...] and epidemiological informatio n. Performed on the [employer] Fusion instrument Performing Lab [place] [facility] Lab [facility] SERVICES Specimen Swab Performing Organization Address City/State/ZIP Code Phon e Number [facility] [address] [place] [address] SERVICES documented in this encounter Visit Diagnoses Not on filedocumented in this encounter Care Teams Veneer Stacker Relationship Specialty Start Date End Date Moises-Betsy Hummel MD PCP - General 10/24/14 [address],[facility] [address] [place] [phone] documented as of this encounter
--- OUTSIDE RECORDS SUMMARY | 2021-09-14 11:42 | XMS_ITS | Encounter Summary ---
:1980 Author Organization [facility] Address [address] [place] [address] Care Team Providers Name Role Phone Unavailable Primary Care Provider Unavailable Encounter Details Date Type Department Care Team Description 10/10/2014 Results Only [facility]- [facility]OGER De Leon-Betsy Hummel MD [phone] [place], [place] [address] (Wo rk) Social History Tobacco Use Types Packs/Day Years Used Date Never Assessed Sex Assigned at Date Recorded Not on file documented as of this encounter Plan of Treatment Not on filedocumented as of this encounter Procedures Procedure Name Priority Date/Time Associated Diagnosis Comme nts PAP TEST- RESULT Routine 10/10/2014 0:00 EDT Resu lts for this ONLY procedure are i n the results section. documented in this encounter Results PAP TEST- RESULT ONLY (10/10/2014 0:00 EDT) Pathology Report: CYTOPATHOLOGY REPORT [facility] Reports generated via electronic interface contain kitty ginal data; SERVICES however they are lacking the format of the original re port. Caution should be taken when reading/interpreting unfo rmatted reports. Name: ? NATALIE VILLARREAL ? Accession #: ? [id number] ? : ? 1980 (Age: 4 3) ??F ?Collect Date: ? 2014 ? Location: ? [facility] ? Receive Date: ? 5 ? Provider: BETSY GORMAN MD Copy to: ? Final Report SPECIMEN ADEQUACY ? Satisfactory for Evaluation - transformation zone component present GENERAL CATEGORIZATION ? Epithelial Cell Abnormality INTERPRETATION ? Squamous Cell Abnormality - Atypical squamous c ells, undetermined significance (ASC-US). EDUCATIONAL NOTES/RECOMMENDATIONS ? [facility] recommends foll owing ASCCP's 2012 Updated Consensus Guidelines for the Management of Abnormal Cervical Cancer Screening T ests and Cancer Precursors (JLGTD, 2013; 17(5):S1-S27). ??Conse nsus guidelines are available online at www.asccp.org. Last Menstrual Period: 10/01/14 Specimen/Source: ??Pap Test, Cervix/Endocervix, ThinPr ep Imaging System with manual evaluation Document reviewed and electronically signed by: ? MARBIN MADRID MD ? Report ??Date: 10/21/2014 10:08 HPV with Pap Test ? Date Ordered: ? 10/21/2014 ? Status: ?? Signed Out ?Date Complete: ? 10/23/2014 ? By: ??Sy stem Interface ? Date Reported: ? 10/23/2014 ? Interpretation RESULT: Negative for HPV. No E6 or E7 mRNA is detected from HPV types 16,18,31,3 3,35, 39,45,51,52,56,58,59,66, and 68 by steel finisher media alondra amplification. Comments Document reviewed and electronically signed by: ? System Interface ? Report date: 10/23/2014 By the signature above, the attending physician certif ies that he/she has personally conducted a gross and/or microscopic examin ation of the described specimens and rendered or confirmed the above diagnosi s. End of Report Specimen Performing Organization Address City/State/ZIP Code Phon e Number [facility] [address] [place] [address] SERVICES documented in this encounter Visit Diagnoses Not on filedocumented in this encounter
== END 2021-09-14 11:37 | disposition home or self-care (01) ==
LOC: NCHCN 11:36
PROVIDERS: PCP Nurse Practitioner Family; Visit Provider Nurse Practitioner Family
DX: N76.0 Acute vaginitis (principal); Z12.4 Encounter for screening for malignant neoplasm of cervix; Z11.51 Encounter for screening for human papillomavirus (HPV); R87.810 Cervical high risk human papillomavirus (HPV) DNA test positive; Z01.419 Encounter for gynecological examination (general) (routine) without abnormal findings
CPT/HCPCS: 88142; 87480; 87510; 87624; 87660

== ENCOUNTER 2021-11-16 14:53 | Outpatient (REF) | payer OTHER, SELFPAY ==
--- NOTE | 2021-11-16 13:45 | PAPFT_PTH ---
PATIENT: Natalie Villarreal LOC: [facility]#:[id number] AGE/SX: 41/F ROOM: RE11/16/[address]: Mackenzie Flower : 1980 BED: DIS: 11/16/2021 SPEC #: [id number] RECD: 11/16/21 18:13 STATUS: ELISABETH REQ #: [id number] KOBY: 11/16/21 13:[address]: Mackenzie Flower DEPT: [facility] Cytology RECD BY: Kristan Sandoval ENTERED: 11/16/21 18:13 SP TYPE: PAPFT OTHR DR: Dejah De Leon Tissues: 1 - CX/ENDOCX FOR PAP SMEARS Procedures: PAP THIN PREP/[facility] Screening HPV DNA PROBE Comments: [id number]
== END 2021-11-16 14:54 | disposition home or self-care (01) ==
LOC: NCHCN 14:53
PROVIDERS: PCP Nurse Practitioner Family; Visit Provider Nurse Practitioner Family
DX: Z12.4 Encounter for screening for malignant neoplasm of cervix (principal); Z11.51 Encounter for screening for human papillomavirus (HPV)
CPT/HCPCS: 88142; 87624

== ENCOUNTER 2021-11-19 01:57 | Outpatient (CLI) | payer OTHER, SELFPAY ==
[2021-11-19 11:46] LABS: TSH (W/Ref FT4) 0.83 uIU/mL (0.36-3.74); Vitamin B12 677 pg/mL (193-986)
== END 2021-11-19 01:58 | disposition home or self-care (01) ==
LOC: LBO 01:57
PROVIDERS: PCP Nurse Practitioner Family; Visit Provider Nurse Practitioner Family
DX: R53.83 Other fatigue (principal); N95.1 Menopausal and female climacteric states; K30 Functional dyspepsia; F03.90 Unspecified dementia, unspecified severity, without behavioral disturbance, psychotic disturbance, mood disturbance, and anxiety
CPT/HCPCS: 36415; 82607; 84443

== ENCOUNTER 2022-02-08 03:37 | Outpatient (CLI) | payer OTHER, SELFPAY ==
[2022-02-08 08:53] LABS: Calculated LDL 80 mg/dL (<100); Cholesterol 170 mg/dL (<200); HDL Cholesterol 76 mg/dL (40-60); Triglyceride 73 mg/dL (<150)
== END 2022-02-08 03:38 | disposition home or self-care (01) ==
PROVIDERS: PCP Nurse Practitioner Family; Visit Provider Nurse Practitioner Family
DX: Z13.6 Encounter for screening for cardiovascular disorders (principal)
CPT/HCPCS: 36415; 80061

== ENCOUNTER → 2022-12-02 01:43 | Outpatient (CLI) | payer OTHER, SELFPAY ==
--- NOTE | 2022-12-02 12:16 | DI.MAMMO_ITS ---
Exam(s) MAMMO SCREENING EXAM: MAMMO SCREENING CLINICAL HISTORY: SCREENING, Z12.31, BASELINE TECHNIQUE: Bilateral full field digital CC and MLO mammographic images were obtained with 3D tomosyn thesis and utilizing computer aided detection (CAD). COMPARISON: This is a baseline examination. FINDINGS: Masses/Architectural Distortion: None seen. Microcalcifications: No suspicious pleomorphic-type are seen. Skin Thickening/Nipple Retraction: None. IMPRESSION: 1. No significant interval change with no specific features of malignancy noted. 2. Unless there is more urgent need, screening mammography is recommended, as per [employer] guidelines. BI-RADS Category 1 - Negative Breast Density - Category C - Heterogeneously dense Breast density category C or D implies that the patient has dense breast tissue. Dense breast tissue is very common and is not abnormal but dense breast tissue can make it harder to find cancer on a ma mmogram. Also, dense breast tissue may increase their breast cancer risk. This information about the result of the mammogram report was provided to the patient to raise their awareness. Use this report when you speak with the patient about their risks for breast cancer, which includes their family hist ory. At that time, you may recommend for more screening tests (Ultrasound or MRI) as they might be us eful based on their risk. A negative radiographic report should not delay biopsy if a dominant or clinically suspicious mass is present. Up to ten percent of cancers are not identified on mammography. A negative report may reinforce clinical impression. Adenosis and dense breasts may obscure an underlying neoplasm. False positive reports average 6 to 10%. Patient will receive a letter notifying them of these results.
== END ==
PROVIDERS: PCP Nurse Practitioner Family; Visit Provider Nurse Practitioner Family
DX: Z12.31 Encounter for screening mammogram for malignant neoplasm of breast (principal)
CPT/HCPCS: 77063; 77067